=== PATIENT | male | born 1940 | race Caucasian/White ===

== ENCOUNTER 2017-10-13 08:40 | Inpatient (IN) ==
[2017-10-13] MEDS ORDERED: *HR* HYDROmorphone (PF) 1 MG/ML SYRINGE IM ONE (08:55)
[2017-10-13] MEDS ORDERED: Ondansetron ODT 4 MG TAB.RAPDIS SL ONE (08:55)
[2017-10-13] MEDS ORDERED: *HR* LORazepam 1 MG TABLET PO ONE (09:32)
[2017-10-13] MEDS ORDERED: Ketorolac 15 MG/ML VIAL IVP ONE (09:33)
--- NOTE | 2017-10-13 09:40 | Emergency Department Note ---
Disposition Clinical Impression: Ureterolithiasis Sciatica Qualifiers: Laterality: left Qualified Code(s): M54.32 - Sciatica, left side Disposition: Admitted As Inpatient Condition: Fair Referrals: Simba Ellington DO [Primary Care Provider] - Forms: ED Satisfaction Letter Time of Disposition: 16:02 Extremity Problem HPI - General Chief complaint: ED Extremity Problem,Nontraumatic Stated complaint: Left Leg Pain Time Seen by Provider: 10/13/17 09:00 Source: patient, EMS Limitations: no limitations Nursing Notes Reviewed: Yes Vital Signs Reviewed: Yes - History of Present Illness HPI Narrative: Presents with severe left gluteal pain which has been present last several months but worsened significantly this morning at home and is worse with range of motion and he has been diagnosed with sciatica and I did review the previous record with a prescription for prednisone which she has taken however has not yet taken today. He did take one [place] today. The pain is worse with range of motion with associated paresthesias. No abdominal pain. No back pain. No fever or vomiting. He has had imaging including MRI scan of the hip and lumbosacral spine we are in the process of getting his records. Social history : No smoking or alcohol. Is here with his Pain Scale: 10 - Related Data Home Medications Medication Instructions Recorded Confirmed Ramipril [Altace] 2.5 mg PO DAILY 10/01/15 10/13/17 Simvastatin [Zocor] 20 mg PO HS 10/01/15 10/13/17 Tamsulosin [Flomax] 0.4 mg PO DAILY 10/01/15 10/13/17 Multivitamin [One Daily 1 tab PO DAILY 07/10/17 10/13/17 Multivitamin] Allergies Allergy/AdvReac Type Severity Reaction Status Date / Time meperidine Allergy Unresponsiv Verified 10/11/17 08:18 e Review of Systems: Constitutional: No fever Vision: No blurred vision ENT: No rhinorrhea Respiratory: No cough Allergic: No allergies : No blood in urine GI: No blood in stool Hematologic: No bruising Dermatologic: No skin rash Musculoskeletal: + pain in the extremities Neuro: + numbness of the extremities Past Medical History - Past Medical History Medical history: Reports: DVT, GERD, hypertension Surgical history: Reports: orthopedic, other Psychiatric history: Reports: no psych history - Social History Smoking Status: Never smoker Smokeless Tobacco Status: No Alcohol use: Reports: none Drug use: Reports: none Physical Exam CONSTITUTIONAL: Alert and oriented X3, well-nourished, well appearing, in no apparent distress HEAD: Normocephalic; atraumatic. EYES: PERRL, no scleral icterus. NOSE: The nose is normal in appearance without rhinorrhea RESP: Normal chest excursion with respiration; breath sounds clear and equal bilaterally; no wheezes, rhonchi, or rales CARD: Regular rhythm, without murmurs, rub or gallop ABD: Non-distended; non-tender, soft,without rigidity, rebound or guarding, no pulsatile abdominal mass SKIN: Normal for age and race; warm and dry; no apparent lesions Extremities: Left gluteal area is normal in appearance. Does have pain with palpation mid aspect of the left gluteal area as well as pain with passive range of motion of the left hip. Does have a 2+ dorsal pedal pulse on the left. Sensation grossly intact. The foot is pink and warm. I did palpate the lumbosacral spine as well the left lower back musculature and neither of these do elicit any pain. - General Limitations: no limitations General appearance: alert, in distress Course Vital Signs Temperature 98.6 F 10/13/17 08:41 Pulse Rate 78 10/13/17 08:41 Respiratory Rate 20 10/13/17 08:41 Blood Pressure 152/85 10/13/17 08:41 O2 Sat by Pulse Oximetry 98 10/13/17 08:41 Temperature 98.6 F 10/13/17 08:41 Pulse Rate 56 10/13/17 15:03 Respiratory Rate 16 10/13/17 15:03 Blood Pressure 154/85 10/13/17 15:03 O2 Sat by Pulse Oximetry 97 10/13/17 15:03 Oxygen Delivery Oxygen Delivery Room Air Extremity Problem, Nontraumati - MDM Narrative Medical decision making narrative: Symptoms most consistent with sciatica and I do not detect evidence of abdominal aortic aneurysm, infection, zoster or fracture. We are in the process of obtaining the records. 0940 I did confirm no chest pain or shortness of breath however the patient does have a history of DVT has not yet had a Doppler. We are still waiting for old records and in the meantime I will get a Doppler study left lower extremity to look for DVT however I feel this is unlikely with several months of pain and without any edema. Results are pending. The patient did initially receive IM Dilaudid 1 mg and Zofran 4 mg and then in addition will receive Toradol 10 mg IM as well as Ativan 1 mg by mouth. I will reassess. 1011 CT was ordered to look for other causes because this has been worked up further over the last 3 months without a clear etiology found and the suspicion was that however the laboratory evaluation is negative but the CT scan does show a left-sided ureteral proximal ureteral stone at 4 mm into the patient will be admitted with a consult to urology. Case has also been is discussed with orthopedics and the hospitalist as well as Dr. Alejandro from neurosurgery who will see the patient in consult. They recommend MRI scan lumbosacral spine and I did order that test to be done. 1604 - Medical Records Medical records reviewed: Yes I reviewed the patient's medical records. - Lab Data Lab results reviewed: Yes I reviewed the patient's lab results. Result diagrams: 10/13/17 12:18 10/13/17 12:18 Lab Results 10/13/17 10/13/17 10/13/17 Range/Units 12:18 12:18 12:18 WBC 11.4 H (4.3-11.1) K/mcL RBC 3.79 L (4.19-5.50) M/mcL Hgb 12.1 L (12.9-16.9) g/dL Hct 35.4 L (37.5-50.1) % MCV 93.4 (83.0-100.0) fL MCH 31.9 (28.0-33.3) pg MCHC 34.2 (31.6-35.5) g/dL RDW 12.5 (11.5-14.5) % Plt Count 191 (140-400) K/mcL MPV 9.4 (9.4-12.4) fL ESR 5 (0-10) mm/hr Sodium 140 (136-145) mEq/L Potassium 3.4 L (3.5-5.1) mEq/L Chloride 109 H (98-107) mEq/L Carbon Dioxide 24 (23-29) mEq/L BUN 25 H (8-23) mg/dL Creatinine 0.94 (0.70-1.30) mg/dL Est GFR ( Amer) > 60 (> 60) Est GFR (Non-Af Amer) > 60 (> 60) BUN/Creatinine Ratio 27 H (6-26) Glucose 97 (70-105) mg/dL Calculated Osmolality 294 (280-300) Calcium 8.5 L (8.6-10.3) mg/dL Total Bilirubin 0.7 (0.3-1.0) mg/dL Direct Bilirubin 0.1 (0.0-0.2) mg/dL Indirect Bilirubin 0.6 (0.0-1.2) mg/dL AST 15 (13-39) Units/L ALT 11 (7-52) Units/L Alkaline Phosphatase 53 (34-104) Units/L C-Reactive Protein < 5 (Less than 10) mg/L Serum Total Protein 5.4 L (6.4-8.9) g/dL Albumin 3.6 (3.5-5.7) g/dL Globulin 1.8 L (2.4-3.5) g/dL Albumin/Globulin Ratio 2.0 (1.1-2.2) Lipase 15 (11-82) Units/L Urine Color (Yellow) Urine Clarity (Clear) Urine pH (5.0-8.0) pH Units Ur Specific [place] (1.010-1.025) Urine Protein (Neg-Trace) mg/dL Urine Glucose (UA) (Normal) mg/dL Urine Ketones (Negative) mg/dL Urine Blood (Negative) Urine Nitrite (Negative) Urine Bilirubin (Negative) Urine Urobilinogen (Normal) mg/dL Ur Leukocyte Esterase (Negative) Urine Microscopic RBC (0-3) per hpf Urine Microscopic WBC (0-3) per hpf Ur Squamous Epith Cells (None-Few) per lpf Urine Bacteria (None-Few) per hpf Hyaline Casts (None-Few) per lpf 10/13/17 Range/Units 14:54 WBC (4.3-11.1) K/mcL RBC (4.19-5.50) M/mcL Hgb (12.9-16.9) g/dL Hct (37.5-50.1) % MCV (83.0-100.0) fL MCH (28.0-33.3) pg MCHC (31.6-35.5) g/dL RDW (11.5-14.5) % Plt Count (140-400) K/mcL MPV (9.4-12.4) fL ESR (0-10) mm/hr Sodium (136-145) mEq/L Potassium (3.5-5.1) mEq/L Chloride (98-107) mEq/L Carbon Dioxide (23-29) mEq/L BUN (8-23) mg/dL Creatinine (0.70-1.30) mg/dL Est GFR ( Amer) (> 60) Est GFR (Non-Af Amer) (> 60) BUN/Creatinine Ratio (6-26) Glucose (70-105) mg/dL Calculated Osmolality (280-300) Calcium (8.6-10.3) mg/dL Total Bilirubin (0.3-1.0) mg/dL Direct Bilirubin (0.0-0.2) mg/dL Indirect Bilirubin (0.0-1.2) mg/dL AST (13-39) Units/L ALT (7-52) Units/L Alkaline Phosphatase (34-104) Units/L C-Reactive Protein (Less than 10) mg/L Serum Total Protein (6.4-8.9) g/dL Albumin (3.5-5.7) g/dL Globulin (2.4-3.5) g/dL Albumin/Globulin Ratio (1.1-2.2) Lipase (11-82) Units/L Urine Color Yellow (Yellow) Urine Clarity Clear (Clear) Urine pH 6.0 (5.0-8.0) pH Units Ur Specific [place] > 1.030 H (1.010-1.025) Urine Protein Negative (Neg-Trace) mg/dL Urine Glucose (UA) Normal (Normal) mg/dL Urine Ketones Negative (Negative) mg/dL Urine Blood Small H (Negative) Urine Nitrite Negative (Negative) Urine Bilirubin Negative (Negative) Urine Urobilinogen Normal (Normal) mg/dL Ur Leukocyte Esterase Negative (Negative) Urine Microscopic RBC 3-5 H (0-3) per hpf Urine Microscopic WBC 0-3 (0-3) per hpf Ur Squamous Epith Cells Few (None-Few) per lpf Urine Bacteria None Seen (None-Few) per hpf Hyaline Casts None Seen (None-Few) per lpf - Radiology Data Radiology results reviewed: Yes I reviewed the patient's radiology results.
[2017-10-13] MEDS ORDERED: *HR* Morphine 2 MG/ML SYRINGE IVP ONE (11:26)
[2017-10-13 12:23] LABS: Hematocrit 35.4 % (37.5-50.1); Hemoglobin 12.1 g/dL (12.9-16.9); Mean Corpuscular HGB Conc 34.2 g/dL (31.6-35.5); Mean Corpuscular Hemoglobin 31.9 pg (28.0-33.3); Mean Corpuscular Volume 93.4 fL (83.0-100.0); Mean Platelet Volume 9.4 fL (9.4-12.4); Platelet Count 191 K/mcL (140-400); Red Blood Count 3.79 M/mcL (4.19-5.50); Red Cell Distribution Width 12.5 % (11.5-14.5)
[2017-10-13] MEDS ORDERED: *HR* HYDROmorphone (PF) 1 MG/ML SYRINGE IVP ONE (12:40)
[2017-10-13 12:41] LABS: Alanine Aminotransferase 11 Units/L (7-52); Albumin 3.6 g/dL (3.5-5.7); Alkaline Phosphatase 53 Units/L (34-104); Aspartate Amino Transferase 15 Units/L (13-39); BUN/Creatinine Ratio 27 (6-26); Bilirubin,Direct 0.1 mg/dL (0.0-0.2); Bilirubin,Indirect 0.6 mg/dL (0.0-1.2); Bilirubin,Total 0.7 mg/dL (0.3-1.0); Blood Urea Nitrogen 25 mg/dL (8-23); C-Reactive Protein < 5 mg/L (Less than 10); Calcium 8.5 mg/dL (8.6-10.3); Carbon Dioxide 24 mEq/L (23-29); Chloride 109 mEq/L (98-107); Globulin 1.8 g/dL (2.4-3.5); Glucose 97 mg/dL (70-105); Lipase 15 Units/L (11-82); Osmolality,Calculated 294 (280-300); Potassium 3.4 mEq/L (3.5-5.1); Sodium 140 mEq/L (136-145); Total Protein 5.4 g/dL (6.4-8.9); eGFR For African Americans > 60 (> 60); eGFR For Non-African Americans > 60 (> 60)
[2017-10-13 15:10] LABS: Bilirubin,Urine Negative (Negative); Blood,Urine Small (Negative); Clarity,Urine Clear (Clear); Color,Urine Yellow (Yellow); Glucose,Urine (UA) Normal (Normal); Ketones,Urine Negative (Negative); Leukocyte Esterase,Urine Negative (Negative); Nitrite,Urine Negative (Negative); Protein,Urine Negative (Neg-Trace); Specific Gravity,Urine > 1.030 (1.010-1.025); Urobilinogen,Urine Normal (Normal)
[2017-10-13 15:14] LABS: Bacteria,Urine None Seen per hpf (None-Few); Hyaline Casts,Urine None Seen per lpf (None-Few); Squamous Epithelial Cell,Urine Few per lpf (None-Few); WBC,Urine 0-3 per hpf (0-3)
--- NOTE | 2017-10-13 18:05 | Urology - Consult Note ---
Date of Encounter: 10/13/17 Time of Encounter: 18:02 - Assessment and Plan (1) Ureterolithiasis Current Visit: Yes Status: Acute Assessment and plan: 76-year-old man with a 4 mm left proximal ureteral stone was admitted for pain control. I discussed with him that his CT scan shows no evidence of hydronephrosis. Typically patients will develop pain associated with ureteral obstruction. The stone is nonobstructing. Discussed that his pain may not be related to the stone. I also reviewed that treatment of the stone could certainly make his pain even worse. We discussed the discomfort associated with the stent. I also discussed seeing at the stone will pass over time if we can control his pain. We reviewed the risks and benefits of both approaches. After discussion he elects to proceed with a left ureteroscopy, laser lithotripsy, and stent placement. He was informed of the risks of the procedure including but not limited to bleeding, infection, injury to other structures, need for further procedures, stent irritation, incomplete fragmentation, ureteral perforation, need for nephrostomy tube, need for open repair, risks unforeseen, and the risk of anesthesia. He is willing to proceed. He could have a regular diet tonight. Nothing by mouth past midnight. He understands that his surgery may be late in the afternoon tomorrow. Urology CN:PREETI Consult date: 10/13/17 Reason for consult Urology: Other (left ureteral stone) History of present illness: 76-year-old man presents with concern for left flank pain. The pain became quite severe today. It radiated down his left leg. He has a known history of sciatica, but this was much more severe. He denies any history of kidney stones. He says he voids well without any issues. He denies any family history of kidney stones or prostate cancer. A CT scan was performed in the emergency department which showed a 4 mm left proximal ureteral stone. There was no evidence of hydronephrosis. He has been admitted for further care. Currently, he says his pain is somewhat improved. Past Med Surg Social Fam HX - Past Medical History Medical history: DVT, GERD, hypertension Psychiatric history: no psych history - Past Surgical History Surgical History: orthopedic, other - Social History Smoking Status: Never smoker Smokeless Tobacco Status: No Alcohol use: none Drug use: none Medications and Allergies Ramipril [Altace] 2.5 mg PO DAILY 10/01/15 [History] Simvastatin [Zocor] 20 mg PO HS 10/01/15 [History] Tamsulosin [Flomax] 0.4 mg PO DAILY 10/01/15 [History] Multivitamin [One Daily Multivitamin] 1 tab PO DAILY 07/10/17 [History] 3 Allergy/AdvReac Type Severity Reaction Status Date / Time meperidine Allergy Unresponsiv Verified 10/11/17 08:18 e Review of Systems - Constitutional no chills, no fever(s) - EENT Nose, mouth and throat: no dizziness - Cardiovascular no chest pain - Respiratory no dyspnea - Gastrointestinal no nausea, no vomiting - Genitourinary flank pain, no hematuria - Musculoskeletal no back pain - Integumentary no erythema, no rash - Neurological no weakness - Psychiatric no suicidal ideation - Hematologic/Lymphatic no easy bleeding - Allergic/Immunologic no wheezing Exam Initial Vital Signs Temp Pulse Resp BP Pulse Ox 98.6 F 78 20 152/85 98 10/13/17 08:41 10/13/17 08:41 10/13/17 08:41 10/13/17 08:41 10/13/17 08:41 - General physical appearance Present: well developed, well nourished, no distress - Eyes Absent: icteric - ENT Present: normal nares - Neck Present: trachea midline - Respiratory Present: normal respiratory effort - Cardiovascular Cardiovascular exam IM: RRR - Abdomen Abdomen: Present: soft Urology Results - Labs 10/13/17 12:18 10/13/17 12:18 Abnormal lab results WBC 11.4 K/mcL (4.3-11.1) H 10/13/17 12:18 RBC 3.79 M/mcL (4.19-5.50) L 10/13/17 12:18 Hgb 12.1 g/dL (12.9-16.9) L 10/13/17 12:18 Hct 35.4 % (37.5-50.1) L 10/13/17 12:18 Potassium 3.4 mEq/L (3.5-5.1) L 10/13/17 12:18 Chloride 109 mEq/L (98-107) H 10/13/17 12:18 BUN 25 mg/dL (8-23) H 10/13/17 12:18 BUN/Creatinine Ratio 27 (6-26) H 10/13/17 12:18 Calcium 8.5 mg/dL (8.6-10.3) L 10/13/17 12:18 Serum Total Protein 5.4 g/dL (6.4-8.9) L 10/13/17 12:18 Globulin 1.8 g/dL (2.4-3.5) L 10/13/17 12:18 Ur Specific [place] > 1.030 (1.010-1.025) H 10/13/17 14:54 Urine Blood Small (Negative) H 10/13/17 14:54 Urine Microscopic RBC 3-5 per hpf (0-3) H 10/13/17 14:54 All other labs normal. - Imaging CT scan - abdomen: report reviewed, image reviewed CT scan - pelvis: report reviewed, image reviewed Consult Discharge Plan - Plan Referrals: Simba Ellington DO [Primary Care Provider] -
[2017-10-13] MEDS ORDERED: Acetaminophen 325 MG TABLET PO PRN (19:31)
[2017-10-13] MEDS ORDERED: Naloxone 0.4 MG/ML INJ IVP PRN (19:31)
[2017-10-13] MEDS ORDERED: *HR* HYDROcodone/Acet 5/325 mg TABLET PO ONE (19:38)
[2017-10-13] MEDS: *HR* Morphine 2 MG/ML SYRINGE IVP PRN (19:51)
--- NOTE | 2017-10-13 20:22 | Internal Med History&Physical ---
Date of Encounter: 10/13/17 Time of Encounter: 20:00 Assessment and Plan (1) Lumbar nerve root impingement Current visit: Yes Status: Acute Patient with severe left sided sciatica with subarticular disc protrusion at L3- L4 and impingement of left L4 nerve root. We will treat symptomatically. Pain control with narcotic medications for severe pain. Will start patient on Flexeril. Consult spine surgery. Monitor vital signs. High risk for complications due to intravenous narcotic medication use. PTOT based on spine surgery recommendations (2) Sciatica Current visit: Yes Status: Acute Due to L4 nerve root impingement. Management per spine surgery recommendations Qualifiers: Laterality: left Qualified Code(s): M54.32 - Sciatica, left side (3) Ureterolithiasis Current visit: Yes Status: Acute Urology consulted. Patient has 4 mm obstructing calculus in the left proximal ureter. Urology has been consulted. No significant hydronephrosis. IV hydration. Plan for ureteroscopy and lithotripsy tomorrow (4) Essential hypertension Current visit: Yes Status: Chronic Blood pressure is elevated at this time. Likely from pain. Will resume home medications. Monitor blood pressure closely. (5) DVT prophylaxis Current visit: Yes Status: Acute With subcutaneous heparin Internal Medicine - H&P: HPI Chief complaint: Left hip/ gluteal region pain Admitted From: Emergency Dept Plans for Post Hospital Care: Home History of present illness: Mr. Chung is a 76 year old male patient with history of prior DVT, gastroesophageal reflux disease, hypertension who presented to the ER with complaints of left gluteal region/hip pain. His symptoms have been going on since June. He had previously seen Dr. Rodriguez in the clinic and was prescribed [place] to help treat his pain. He had come to the ER 2 days back and was placed on prednisone. It did not really help with his symptoms. He denies any fever or chills. No bowel or bladder incontinence. He says that his pain became more and more severe and was excruciating today and so he decided to come to the ER. Any time of movement with his back or left leg causes some tremendous amount of pain. The pain does radiate down his left leg but is mainly prominent in his left gluteal region. He denies any focal weakness but he does have some numbness and tingling in his left foot. He denies any flank pain. No hematuria. No dysuria. Past Med Surg Social Fam HX - Past Medical History Attestation: Yes The following information was validated with the patient. Source: patient Medical history: DVT, GERD, hypertension Psychiatric history: no psych history - Past Surgical History Surgical History: orthopedic, other - Social History Smoking Status: Never smoker Smokeless Tobacco Status: No Alcohol use: none Drug use: none - Family History Father Living Status: Hx Family Cardiac Disorders: Yes ([place]) Mother Living Status: Hx Family Cancer: Yes (ovarian) Internal Medicine - H&P: Meds Ramipril [Altace] 2.5 mg PO DAILY 10/01/15 [History] Simvastatin [Zocor] 20 mg PO HS 10/01/15 [History] Tamsulosin [Flomax] 0.4 mg PO DAILY 10/01/15 [History] Multivitamin [One Daily Multivitamin] 1 tab PO DAILY 07/10/17 [History] 3 Allergy/AdvReac Type Severity Reaction Status Date / Time meperidine Allergy Unresponsiv Verified 10/11/17 08:18 e All Systems PM: A 10-system review of systems was performed and is negative for pertinent findings except as documented above in the HPI. - Constitutional Constitutional: no chills, no fever(s), no night sweats - EENT Eyes: no change in vision, no discharge, no pain, no photophobia Ears: no ear discharge, no ear pain, no tinnitus Nose, mouth and throat: no dysphagia, no nasal discharge, no neck pain, no sore throat - Cardiovascular Cardiovascular ROS IM: no chest pain, no diaphoresis, no dyspnea, no lightheadedness, no palpitations, no syncope - Respiratory Respiratory: no cough, no dyspnea, no wheezing, no excessive phlegm production - Gastrointestinal Gastrointestinal: no abdominal pain, no diarrhea, no hematemesis, no hematochezia, no melena, no nausea, no vomiting - Musculoskeletal Musculoskeletal ROS IM: myalgias, numbness, tingling - Neurological Neurological ROS: no confusion, no convulsions, no focal weakness, no numbness, no tingling, no tremor(s) - Hematologic/Lymphatic Hematologic/Lymphatic: no easy bruising - Constitutional Vitals: Temp Pulse Resp BP Pulse Ox 98.5 F 54 18 155/83 95 10/13/17 17:45 10/13/17 17:45 10/13/17 17:45 10/13/17 17:45 10/13/17 17:45 General appearance: Present: cooperative, A&O X 3, severe distress, answers questions appropriately - Neck Neck exam general surgery: Present: supple, trachea midline. Absent: lymphadenopathy - Respiratory Respiratory exam: Present: CTAB. Absent: accessory muscle use, rales, rhonchi, wheezes - Cardiovascular Cardiovascular exam: Present: RRR, +S1, +S2. Absent: diastolic murmur, gallop, rubs, systolic murmur - GI/Abdominal GI/Abdominal exam: Present: normal bowel sounds, soft, no peritoneal signs. Absent: distended, tenderness - Extremities Exam Extremities exam: Present: warm, radial pulses palpable and symmetrical. Absent : calf tenderness, cyanotic, pedal edema Additional comments: Pain in left hip with straight leg raise test. Significant pain radiating down the spine and left leg on sitting up. - Neurological Exam Neurological exam: Present: alert, CN II-XII intact, oriented X3, no focal deficits. Absent: facial droop, speech deficit - Skin Skin exam: Present: dry, intact Internal Med - H&P Results - Labs CBC & Chem 7: 10/13/17 12:18 10/13/17 12:18 - Impressions Impressions Abdomen/Pelvis CT 10/13/17 12:08 nonspecific calcification and nodularity. There is nodular impression at the urinary bladder base. The urinary bladder is otherwise unremarkable. Peritoneum/Retroperitoneum: No evidence of significant intra-abdominal free fluid. No evidence of intra-abdominal free air. No drainable fluid collection is identified. Bones/Soft Tissues: No suspicious osseous lesion is identified. There is disc extrusion at L3-L4 with inferior migration. Mild spinal canal stenosis. There are additional multilevel disc bulges. Evidence of previous intramedullary nailing of the left femur. IMPRESSION: 1. Obstructing 4 mm calculus within the proximal left ureter, without significant left hydronephrosis. Approximately 20 mm hypodense lesion within the right kidney, which is nonspecific. Follow-up renal ultrasound is recommended when clinically appropriate to confirm that this is a cyst. There are areas of renal cortical scarring suggestive of previous episode of pyelonephritis. 2. Enlarged and nodular prostate with impression of the urinary base. Correlate with PSA level for any concern of prostatic carcinoma. 3. Disc extrusion at L3-L4 with inferior migration. Mild spinal canal stenosis by CT. 4. Colonic diverticulosis, without CT evidence of acute diverticulitis. 5. Nonspecific calcification and/or ossification involving the left gluteal muscles. Given history of left gluteal pain, recommend clinical correlation. D/ / 10/13/2017 13:52:55 Miguel Akbar MD / allen Interpreting Provider: Miguel Akbar MD Lumbar Spine MRI 10/13/17 16:00 IMPRESSION: Subarticular disc protrusion at L3-4 resulting in impingement of the traversing left L4 nerve root. D/ / Pascual Deluca MD / Pascual Deluca MD Interpreting Provider: Pascual Deluca MD
[2017-10-13] MEDS: Ketorolac 30 MG/ML VIAL IVP PRN (21:14)
[2017-10-13] MEDS: D5% in 0.45% NACL 1,000 ML IVC SCH (22:44)
[2017-10-14] MEDS: *HR* Morphine 2 MG/ML SYRINGE IVP PRN (00:45)
[2017-10-14] MEDS: *HR* FentaNYL (PF) 100 MCG/2 ML VIAL IVP PRN ×3 (01:22→10:28)
[2017-10-14 04:41] LABS: Basophils % 0.3 %; Eosinophils % 0.3 %; Hematocrit 35.2 % (37.5-50.1); Hemoglobin 12.1 g/dL (12.9-16.9); Immature Granulocytes % 0.2 % (0-4); Lymphocytes # 2.3 K/mcL (0.6-4.6); Lymphocytes % 35.8 %; Mean Corpuscular HGB Conc 34.4 g/dL (31.6-35.5); Mean Corpuscular Hemoglobin 32.4 pg (28.0-33.3); Mean Corpuscular Volume 94.1 fL (83.0-100.0); Mean Platelet Volume 9.4 fL (9.4-12.4); Monocytes # 0.6 K/mcL (0.0-1.3); Monocytes % 9.7 %; Neutrophils # 3.4 K/mcL (1.6-8.9); Platelet Count 182 K/mcL (140-400); Red Blood Count 3.74 M/mcL (4.19-5.50); Red Cell Distribution Width 12.6 % (11.5-14.5); Segmented Neutrophils % 53.7 %
[2017-10-14 05:04] LABS: BUN/Creatinine Ratio 23 (6-26); Blood Urea Nitrogen 19 mg/dL (8-23); Calcium 8.3 mg/dL (8.6-10.3); Carbon Dioxide 27 mEq/L (23-29); Chloride 107 mEq/L (98-107); Glucose 100 mg/dL (70-105); Osmolality,Calculated 288 (280-300); Potassium 3.8 mEq/L (3.5-5.1); Sodium 138 mEq/L (136-145); eGFR For African Americans > 60 (> 60); eGFR For Non-African Americans > 60 (> 60)
[2017-10-14] MEDS: *HR* Heparin 5,000 UNIT/ML VIAL SQ SCH ×2 (06:08→16:38)
[2017-10-14] MEDS: D5% in 0.45% NACL 1,000 ML IVC SCH (08:48)
[2017-10-14] MEDS: Ketorolac 30 MG/ML VIAL IVP PRN (08:49)
[2017-10-14] MEDS ORDERED: Multivit/Ca/Min/Fe/FA 1 TAB TABLET PO SCH (09:00)
--- NOTE | 2017-10-14 09:28 | Urology Progress Note ---
Date of Encounter: 10/14/17 Time of Encounter: 09:26 - Assessment and Plan (1) Ureterolithiasis Current Visit: Yes Status: Acute Assessment and plan: Plan for left ureteroscopy, laser lithotripsy, and stent placement later today. He is aware of all risks. He is nothing by mouth. Progress Note Narrative: 76-year-old man with a left ureteral stone. He is doing fairly well. His pain is adequately controlled. Objective Initial Vital Signs Temp Pulse Resp BP Pulse Ox 98.6 F 78 20 152/85 98 10/13/17 08:41 10/13/17 08:41 10/13/17 08:41 10/13/17 08:41 10/13/17 08:41 - General physical appearance Present: well developed, well nourished, no distress - Respiratory Present: normal respiratory effort - Abdomen Present: soft - Labs 10/14/17 04:18 10/14/17 04:18 Diabetes panel 10/14/17 Range/Units 04:18 Sodium 138 (136-145) mEq/L Potassium 3.8 (3.5-5.1) mEq/L Chloride 107 (98-107) mEq/L Carbon Dioxide 27 (23-29) mEq/L BUN 19 (8-23) mg/dL Creatinine 0.82 (0.70-1.30) mg/dL Glucose 100 (70-105) mg/dL Calcium 8.3 L (8.6-10.3) mg/dL Calcium panel 10/14/17 Range/Units 04:18 Calcium 8.3 L (8.6-10.3) mg/dL Pituitary panel 10/14/17 Range/Units 04:18 Sodium 138 (136-145) mEq/L Potassium 3.8 (3.5-5.1) mEq/L Chloride 107 (98-107) mEq/L Carbon Dioxide 27 (23-29) mEq/L BUN 19 (8-23) mg/dL Creatinine 0.82 (0.70-1.30) mg/dL Glucose 100 (70-105) mg/dL Calcium 8.3 L (8.6-10.3) mg/dL Adrenal panel 10/14/17 Range/Units 04:18 Sodium 138 (136-145) mEq/L Potassium 3.8 (3.5-5.1) mEq/L Chloride 107 (98-107) mEq/L Carbon Dioxide 27 (23-29) mEq/L BUN 19 (8-23) mg/dL Creatinine 0.82 (0.70-1.30) mg/dL Glucose 100 (70-105) mg/dL Calcium 8.3 L (8.6-10.3) mg/dL Consult Discharge Plan - Plan Referrals: Simba Ellington DO [Primary Care Provider] -
[2017-10-14] MEDS ORDERED: CeFAZolin Premix DUPLEX 2,000 MG/50 ML BAG IVPB ONE (15:00)
[2017-10-14] MEDS ORDERED: Lidocaine -MPF 2% 2 ML VIAL ONE (16:47)
[2017-10-14] MEDS ORDERED: *HR* Midazolam HCl 2 MG/2 ML VIAL ONE (16:48)
[2017-10-14] MEDS ORDERED: *HR* FentaNYL (PF) 100 MCG/2 ML VIAL ONE (16:48)
[2017-10-14] MEDS ORDERED: *HR* Propofol 200 MG/20 ML VIAL IVP ONE (16:48)
[2017-10-14] MEDS ORDERED: Gabapentin 300 MG CAPSULE PO STA ×2 (17:30→19:36)
[2017-10-14] MEDS ORDERED: Acetaminophen IV 1,000 MG/100 ML INFUS..BTL IVPB ONE ×2 (17:30→19:36)
--- NOTE | 2017-10-14 17:32 | Anesthesia Evaluation PreOp ---
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 maintained on Flomax) Anesthesia History: No Prior Anesthetic Complications, Past Anesthesia ( Orthopedic) Alcohol Use: none Drug use: none Medications and Allergies Ramipril [Altace] 2.5 mg PO DAILY 10/01/15 [History] Simvastatin [Zocor] 20 mg PO HS 10/01/15 [History] Tamsulosin [Flomax] 0.4 mg PO DAILY 10/01/15 [History] Multivitamin [One Daily Multivitamin] 1 tab PO DAILY 07/10/17 [History] 3 Allergy/AdvReac Type Severity Reaction Status Date / Time meperidine Allergy Unresponsiv Verified 10/11/17 08:18 e - Meds/Allergy Pre-op Review Medications Reviewed: Yes Allergies Reviewed: Yes Beta Blockers on Current Med List: No Anesthesia Results - Labs 10/14/17 04:18 10/14/17 04:18 Laboratory Results WBC 6.4 K/mcL (4.3-11.1) 10/14/17 04:18 RBC 3.74 M/mcL (4.19-5.50) L 10/14/17 04:18 Hgb 12.1 g/dL (12.9-16.9) L 10/14/17 04:18 Hct 35.2 % (37.5-50.1) L 10/14/17 04:18 MCV 94.1 fL (83.0-100.0) 10/14/17 04:18 MCH 32.4 pg (28.0-33.3) 10/14/17 04:18 MCHC 34.4 g/dL (31.6-35.5) 10/14/17 04:18 RDW 12.6 % (11.5-14.5) 10/14/17 04:18 Plt Count 182 K/mcL (140-400) 10/14/17 04:18 MPV 9.4 fL (9.4-12.4) 10/14/17 04:18 Immature Gran % 0.2 % (0-4) 10/14/17 04:18 Seg Neutrophils % 53.7 % 10/14/17 04:18 Lymphocytes % 35.8 % 10/14/17 04:18 Monocytes % 9.7 % 10/14/17 04:18 Eosinophils % 0.3 % 10/14/17 04:18 Basophils % 0.3 % 10/14/17 04:18 Neutrophils # 3.4 K/mcL (1.6-8.9) 10/14/17 04:18 Lymphocytes # 2.3 K/mcL (0.6-4.6) 10/14/17 04:18 Monocytes # 0.6 K/mcL (0.0-1.3) 10/14/17 04:18 Eosinophils # 0.0 K/mcL (0.0-0.6) 10/14/17 04:18 Basophils # 0.0 K/mcL (0.0-0.2) 10/14/17 04:18 ESR 5 mm/hr (0-10) 10/13/17 12:18 Sodium 138 mEq/L (136-145) 10/14/17 04:18 Potassium 3.8 mEq/L (3.5-5.1) 10/14/17 04:18 Chloride 107 mEq/L (98-107) 10/14/17 04:18 Carbon Dioxide 27 mEq/L (23-29) 10/14/17 04:18 BUN 19 mg/dL (8-23) 10/14/17 04:18 Creatinine 0.82 mg/dL (0.70-1.30) 10/14/17 04:18 Est GFR ( Amer) > 60 (> 60) 10/14/17 04:18 Est GFR (Non-Af Amer) > 60 (> 60) 10/14/17 04:18 BUN/Creatinine Ratio 23 (6-26) 10/14/17 04:18 Glucose 100 mg/dL (70-105) 10/14/17 04:18 Calculated Osmolality 288 (280-300) 10/14/17 04:18 Calcium 8.3 mg/dL (8.6-10.3) L 10/14/17 04:18 Total Bilirubin 0.7 mg/dL (0.3-1.0) 10/13/17 12:18 Direct Bilirubin 0.1 mg/dL (0.0-0.2) 10/13/17 12:18 Indirect Bilirubin 0.6 mg/dL (0.0-1.2) 10/13/17 12:18 AST 15 Units/L (13-39) 10/13/17 12:18 ALT 11 Units/L (7-52) 10/13/17 12:18 Alkaline Phosphatase 53 Units/L (34-104) 10/13/17 12:18 C-Reactive Protein < 5 mg/L (Less than 10) 10/13/17 12:18 Serum Total Protein 5.4 g/dL (6.4-8.9) L 10/13/17 12:18 Albumin 3.6 g/dL (3.5-5.7) 10/13/17 12:18 Globulin 1.8 g/dL (2.4-3.5) L 10/13/17 12:18 Albumin/Globulin Ratio 2.0 (1.1-2.2) 10/13/17 12:18 Lipase 15 Units/L (11-82) 10/13/17 12:18 Urine Color Yellow (Yellow) 10/13/17 14:54 Urine Clarity Clear (Clear) 10/13/17 14:54 Urine pH 6.0 pH Units (5.0-8.0) 10/13/17 14:54 Ur Specific [place] > 1.030 (1.010-1.025) H 10/13/17 14:54 Urine Protein Negative mg/dL (Neg-Trace) 10/13/17 14:54 Urine Glucose (UA) Normal mg/dL (Normal) 10/13/17 14:54 Urine Ketones Negative mg/dL (Negative) 10/13/17 14:54 Urine Blood Small (Negative) H 10/13/17 14:54 Urine Nitrite Negative (Negative) 10/13/17 14:54 Urine Bilirubin Negative (Negative) 10/13/17 14:54 Urine Urobilinogen Normal mg/dL (Normal) 10/13/17 14:54 Ur Leukocyte Esterase Negative (Negative) 10/13/17 14:54 Urine Microscopic RBC 3-5 per hpf (0-3) H 10/13/17 14:54 Urine Microscopic WBC 0-3 per hpf (0-3) 01/26/18 14:54 Ur Squamous Epith Cells Few per lpf (None-Few) 10/13/17 14:54 Urine Bacteria None Seen per hpf (None-Few) 10/13/17 14:54 Hyaline Casts None Seen per lpf (None-Few) 10/13/17 14:54 Impressions Abdomen/Pelvis CT 10/13/17 12:08 nonspecific calcification and nodularity. There is nodular impression at the urinary bladder base. The urinary bladder is otherwise unremarkable. Peritoneum/Retroperitoneum: No evidence of significant intra-abdominal free fluid. No evidence of intra-abdominal free air. No drainable fluid collection is identified. Bones/Soft Tissues: No suspicious osseous lesion is identified. There is disc extrusion at L3-L4 with inferior migration. Mild spinal canal stenosis. There are additional multilevel disc bulges. Evidence of previous intramedullary nailing of the left femur. IMPRESSION: 1. Obstructing 4 mm calculus within the proximal left ureter, without significant left hydronephrosis. Approximately 20 mm hypodense lesion within the right kidney, which is nonspecific. Follow-up renal ultrasound is recommended when clinically appropriate to confirm that this is a cyst. There are areas of renal cortical scarring suggestive of previous episode of pyelonephritis. 2. Enlarged and nodular prostate with impression of the urinary base. Correlate with PSA level for any concern of prostatic carcinoma. 3. Disc extrusion at L3-L4 with inferior migration. Mild spinal canal stenosis by CT. 4. Colonic diverticulosis, without CT evidence of acute diverticulitis. 5. Nonspecific calcification and/or ossification involving the left gluteal muscles. Given history of left gluteal pain, recommend clinical correlation. D/ / 10/13/2017 13:52:55 Miguel Akbar MD / allen Interpreting Provider: Miguel Akbar MD Lumbar Spine MRI 10/13/17 16:00 IMPRESSION: Subarticular disc protrusion at L3-4 resulting in impingement of the traversing left L4 nerve root. D/ / Pascual Deluca MD / Pascual Deluca MD Interpreting Provider: Pascual Deluca MD Anesthesia Exam Vital Signs Temp Pulse Resp BP Pulse Ox 10/14/17 15:56 98.4 F 53 14 137/71 95 10/14/17 12:27 98.4 F 48 14 135/69 94 10/14/17 06:56 97.9 F 47 16 124/62 95 10/14/17 03:57 97.7 F 44 15 114/68 95 10/13/17 23:21 98.4 F 47 16 121/68 97 10/13/17 17:45 98.5 F 54 18 155/83 95 Intake and Output 10/14/17 10/14/17 10/14/17 07:59 15:59 23:59 Intake Total 1000 / 1000 Output Total 450 / 450 700 / 700 Balance -450 / -450 300 / 300 Intake: IV Fluids 1000 / 1000 D5% And 0.45% Nacl 1000 Ml Bag 1000 / 1000 1,000 ML @ 75 mls/hr IVC . 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 Zo Trammell MD
[2017-10-14] MEDS ORDERED: Acetaminophen IV 1,000 MG/100 ML INFUS..BTL ONE (17:40)
--- NOTE | 2017-10-14 17:45 | Operative Note ---
Date of procedure: 10/14/17 Pre-op diagnosis: Left ureteral stone Post-op diagnosis: other (passed left ureteral stone) Procedure: Left ureteroscopy and left ureteral stent placement. Implants: 4.8 [place]cu[place] by 26 cm double-J stent Complications: none Anesthesia: SETHA Surgeon: Jay Darling Was there an assistant manager pt present: No Estimated blood loss (cc): 1 Specimen: none. Condition: stable Disposition: PACU Procedure in Detail: Indications: Mr. Chung is a 76-year-old gentleman who has a history of left flank pain. A CT scan showed a 4 mm stone in the proximal left ureter. He elected to undergo a left ureteroscopy, laser lithotripsy, and stent placement. He is aware of the risks of the procedure including but not limited to bleeding, infection, injury to other structures, need for further procedures, stent irritation, and the risk of anesthesia. He is willing to proceed. Procedure: After informed consent was obtained the patient was brought back to the operating room and placed in supine position. A time out was performed. General anesthesia was administered and an LMA was placed. He was then placed in the lithotomy position. He was prepped and draped in the usual sterile fashion. Cystoscopy was performed. The anterior urethra was normal. There was no evidence of bladder tumors. The ureteral orifices were in the normal orthotopic position. The Zip wire was placed in the left ureteral orifice and brought into the kidney under fluoroscopic guidance. The ureter was gently dilated with the 8 /10 [place] ureteral dilator. I then advanced the semirigid ureteroscope into the ureter. The scope was advanced into the proximal ureter. No stone was noted. The sensor wire was then placed. The ureteroscope was removed. The flexible ureteroscope was advanced into the kidney. I surveyed all the calyces. I did not visualize any stone. A pullout ureteroscopy was performed. There was no evidence of stone in the ureter. I reassessed with the semirigid ureteroscope and indeed there was no stone. The bladder was then surveyed with the cystoscope and no stone was seen in the bladder. A 4.8 [place] by 26cm JJ stent was then placed with good curl seen in the kidney and the bladder. The dangle string left intact. The string was secured to the penis using a Tegaderm. The patient was then awakened from general anesthesia and brought to recovery room in good condition. All sponge, needle, and instrument counts were correct.
--- NOTE | 2017-10-14 18:01 | Internal Med Progress Note ---
Date of Encounter: 10/14/17 Time of Encounter: 17:59 - Assessment and plan (1) Ureterolithiasis Current Visit: Yes Status: Acute Assessment and plan: Urology consulted. Patient has 4 mm obstructing calculus in the left proximal ureter. Urology was consulted. No significant hydronephrosis. Left ureteroscopy, laser lithotripsy, basket stone extraction, and left ureteral stent placement completed. (2) Essential hypertension Current Visit: Yes Status: Chronic Assessment and plan: Blood pressure well-controlled with pain control Continue home medications (3) DVT prophylaxis Current Visit: Yes Status: Acute Assessment and plan: Subcutaneous heparin (4) Sciatica Current Visit: Yes Status: Acute Assessment and plan: Due to L4 nerve root impingement. Management per spine surgery recommendations Qualifiers: Laterality: left Qualified Code(s): M54.32 - Sciatica, left side (5) Lumbar nerve root impingement Current Visit: Yes Status: Acute Assessment and plan: Patient with severe left sided sciatica with subarticular disc protrusion at L3- L4 and impingement of left L4 nerve root. We will treat symptomatically. Pain control with narcotic medications for severe pain. Will start patient on Flexeril. Consult spine surgery. Monitor vital signs. High risk for complications due to intravenous narcotic medication use. PT/OT based on spine surgery recommendations - Subjective Interval history: Patient is lying in bed at this time. He is in no acute distress. He has been heavily medicated overnight for uncontrolled pain which has finally been settled down. He states as long as he does not move these okay. He is anxiously awaiting his urological procedure. He denies chest pain, shortness of breath, fever, chills, nausea, vomiting, headache or dizziness. - Constitutional Vitals: Temp Pulse Resp BP Pulse Ox 98.4 F 53 14 137/71 95 10/14/17 15:56 10/14/17 15:56 10/14/17 15:56 10/14/17 15:56 10/14/17 15:56 General appearance: Present: cooperative, A&O X 3, severe distress, answers questions appropriately - Head Head exam: Present: atraumatic, normocephalic - Eye Eye exam: Present: conjuntiva pink, sclera anicteric - Neck Neck exam general surgery: Present: supple, trachea midline. Absent: lymphadenopathy - Respiratory Respiratory exam: Present: decreased breath sounds, CTAB. Absent: accessory muscle use, rales, respiratory distress, rhonchi, wheezes - Cardiovascular Cardiovascular exam: Present: RRR, +S1, +S2. Absent: diastolic murmur, gallop, rubs, systolic murmur - GI/Abdominal GI/Abdominal exam: Present: normal bowel sounds, soft, no peritoneal signs. Absent: distended, guarding, tenderness - Extremities Exam Extremities exam: Present: warm, radial pulses palpable and symmetrical. Absent : calf tenderness, cyanotic, pedal edema - Neurological Exam Neurological exam: Present: oriented X3, no focal deficits. Absent: pronater drift, facial droop, speech deficit - Skin Skin exam: Present: dry, intact, warm Internal Medicine: Result - Labs CBC & Chem 7: 10/14/17 04:18 10/14/17 04:18 Labs: Short CBC 10/14/17 Range/Units 04:18 WBC 6.4 (4.3-11.1) K/mcL Hgb 12.1 L (12.9-16.9) g/dL Hct 35.2 L (37.5-50.1) % Plt Count 182 (140-400) K/mcL Neutrophils # 3.4 (1.6-8.9) K/mcL BMP 10/14/17 04:18 Sodium 138 Potassium 3.8 Chloride 107 Carbon Dioxide 27 BUN 19 Creatinine 0.82 Glucose 100 Calcium 8.3 L Consult Discharge Plan - Plan Referrals: Simba Ellington DO [Primary Care Provider] -
[2017-10-14] MEDS ORDERED: Dexamethasone 4 MG/ML VIAL ONE (18:18)
[2017-10-14] MEDS ORDERED: Ondansetron 4 MG/2 ML VIAL ONE (18:18)
[2017-10-14] MEDS ORDERED: Ketorolac 30 MG/ML VIAL ONE (18:32)
[2017-10-14] MEDS ORDERED: *HR* Magnesium Sulfate 1 GM/2 ML VIAL ONE (18:41)
--- NOTE | 2017-10-14 19:20 | Anesthesia Evaluation Post Op ---
Date of Encounter: 10/14/17 Time of Encounter: 19:19 - Vital Signs Vital Signs: Vital Signs/O2 Sat/Glucose, Most Current Temp Pulse Resp BP Pulse Ox 10/14/17 19:15 52 16 150/82 97 10/14/17 19:05 50 16 149/80 100 10/14/17 18:55 97.7 F 60 16 136/87 100 10/14/17 15:56 98.4 F 53 14 137/71 95 - Lungs Lungs: Clear Ascult./Percussion - Airway Airway: Non-obstructed - Cardiovascular Baseline Rhythm - Mental Status Mental Status: Asleep with brisk response to light stimulation - Pain Pain Scale: 0 Pain Scale used: Numeric (1 - 10) - Nausea Vomiting Nausea Vomiting: Not Present - Hydration Hydration: Ice chips - Discharge PostOp Status: Transfer Patient to floor Anes Supervising Prov Stmt: Pt VSS and pt has met criteria for discharge to floor. -MD Valeri
[2017-10-14] MEDS ORDERED: Acetaminophen 325 MG TABLET PO PRN (19:36)
[2017-10-14] MEDS ORDERED: Ketorolac 30 MG/ML VIAL IVP PRN (19:36)
[2017-10-14] MEDS ORDERED: *HR* FentaNYL (PF) 100 MCG/2 ML VIAL IVP PRN (19:36)
[2017-10-14] MEDS ORDERED: *HR* Morphine 2 MG/ML SYRINGE IVP PRN (19:36)
[2017-10-14] MEDS ORDERED: Naloxone 0.4 MG/ML INJ IVP PRN (19:36)
[2017-10-14] MEDS ORDERED: D5% in 0.45% NACL 1,000 ML IVC SCH (19:36)
[2017-10-15] MEDS ORDERED: *HR* Heparin 5,000 UNIT/ML VIAL SQ SCH (06:00)
[2017-10-15] MEDS ORDERED: Multivit/Ca/Min/Fe/FA 1 TAB TABLET PO SCH (09:00)
--- NOTE | 2017-10-15 10:25 | Urology Progress Note ---
Date of Encounter: 10/15/17 Time of Encounter: 10:23 - Assessment and Plan (1) Ureterolithiasis Current Visit: Yes Status: Acute Assessment and plan: 76-year-old man with a history of left ureteral stone. I didn't see any stone evident within the left kidney. A stent has been placed. He can remove this on October 19, 2017. My office will arrange for follow-up with him in 2-4 weeks. I will sign off. Please call with any questions. Progress Note Narrative: Postop day #1 status post left ureteroscopy and stent placement. He is doing well. His urine is clearing. He reports minimal discomfort with the stent. He is still having left leg pain. Objective Initial Vital Signs Temp Pulse Resp BP Pulse Ox 98.6 F 78 20 152/85 98 10/13/17 08:41 10/13/17 08:41 10/13/17 08:41 10/13/17 08:41 10/13/17 08:41 - General physical appearance Present: well developed, well nourished, no distress - Respiratory Present: normal respiratory effort - Abdomen Present: soft - Labs 10/14/17 04:18 10/14/17 04:18 - VTE Documentation of Mechanical Device: Intermittent pneumatic compression device Consult Discharge Plan - Plan Referrals: Simba Ellington DO [Primary Care Provider] -
[2017-10-15 11:45] VITALS: BP 176/85
--- NOTE | 2017-10-15 11:50 | Event Note ---
Date of Encounter: 10/15/17 Time of Encounter: 11:[address] Alejandro who reviewed MRI. His plan is for outpatient referal to the spine center for lumbar epidural steroid injection. Follow up as soon as discharged.
--- NOTE | 2017-10-15 14:33 | Discharge Summary ---
Date of Encounter: 10/15/17 Time of Encounter: 14:29 - Discharge Diagnosis (1) Ureterolithiasis Priority: Primary Status: Acute Comments: 76-year-old man with a history of left ureteral stone. Urology consulted. Patient has 4 mm obstructing calculus in the left proximal ureter. Urology was consulted. No significant hydronephrosis. Left ureteroscopy, laser lithotripsy, basket stone extraction, and left ureteral stent placement completed. On postop day #1 status post left ureteroscopy and stent placement he is doing well. His urine is clearing. He reports minimal discomfort with the stent. No stone evident within the left kidney. A stent has been placed. Per urology He can remove this on October 19, 2017. Urology office will arrange for follow-up with him in 2-4 weeks. (2) Essential hypertension Priority: Secondary Status: Chronic Comments: Pressure was elevated when his pain level was elevated but since that has been controlled he is stable on his previous home medication regime (3) Sciatica Priority: Primary Status: Acute Comments: Due to L4 nerve root impingement. Management as per spine surgery recommendations as outpatient Qualifiers: Laterality: left Qualified Code(s): M54.32 - Sciatica, left side (4) Lumbar nerve root impingement Priority: Primary Status: Acute Comments: Patient with severe left sided sciatica with subarticular disc protrusion at L3- L4 and impingement of left L4 nerve root. Has been treated symptomatically. Orthopedic service spoke with Dr. Alejandro who reviewed MRI. His plan is for outpatient referal to the spine center for lumbar epidural steroid injection. Follow up as soon as discharged. Continue patient on Flexeril. Patient has been taking [place] at home, will continue Patient has were informed to let the orthopedic service know tomorrow that he was home so the arrangements can be made for the follow-up - Discharge Medications Prescriptions: Cyclobenzaprine [Flexeril] 10 mg PO TID PRN #21 tablet PRN Reason: Spasms HYDROcodone/Acet 7.5/325 mg [[place] 7.5-325 mg] 1 tab PO Q8H #21 tablet Home Medications: Ramipril [Altace] 2.5 mg PO DAILY 10/01/15 [History] Simvastatin [Zocor] 20 mg PO HS 10/01/15 [History] Tamsulosin [Flomax] 0.4 mg PO DAILY 10/01/15 [History] Multivitamin [One Daily Multivitamin] 1 tab PO DAILY 07/10/17 [History] Cyclobenzaprine [Flexeril] 10 mg PO TID PRN #21 tablet 10/15/17 [Rx] HYDROcodone/Acet 7.5/325 mg [[place] 7.5-325 mg] 1 tab PO Q8H #21 tablet 10/15/17 [Rx] Polyethylene Glycol 3350 [MiraLAX] 17 gm PO DAILY PRN powd.pack 10/15/17 [Rx] Allergies/Adverse Reactions: 3 Allergy/AdvReac Type Severity Reaction Status Date / Time meperidine Allergy Unresponsiv Verified 10/11/17 08:18 e Date of admission: 10/15/17 10:48 Primary care physician: Simba Ellington Discharging clinician: Ebony Pittman Anticipated date of discharge: 10/15/17 - Patient Status Disposition: Home, Self-Care Condition: Fair Functional capacity at discharge: independent ambulation Overall status at discharge: patient is progressing back to baseline - Discharge Instructions Follow Up With: Simba Ellington DO [Primary Care Provider] - - Diet and Activity Activity: resume usual activities as tolerated Diet: advance to your usual diet Interval History: Patient much more comfortable today, still having some left leg pain but denies any urinary symptoms. He is voiding without difficulty. No fevers, chills, chest pain, shortness of breath, changes in bowel or bladder. He is agreeable to go home so he can follow up with the Dr Jean-Baptiste in the office for his injection which is being scheduled Hospital course: Please see assessment and plan - Time Spent with Patient Total time spent providing and/or coordinating discharge services: Less than 30 minutes - Constitutional Vitals: Temp Pulse Resp BP Pulse Ox 97.9 F 65 17 176/85 93 10/15/17 11:43 10/15/17 11:43 10/15/17 11:43 10/15/17 11:43 10/15/17 11:43 General appearance: Present: cooperative, A&O X 3, pleasant, no acute distress, severe distress, answers questions appropriately - Head Head exam: Present: atraumatic, normocephalic - Eye Eye exam: Present: conjuntiva pink, sclera anicteric - Neck Neck exam general surgery: Present: supple, trachea midline. Absent: lymphadenopathy - Respiratory Respiratory exam: Present: CTAB. Absent: accessory muscle use, rales, rhonchi, wheezes - Cardiovascular Cardiovascular exam: Present: RRR, +S1, +S2. Absent: diastolic murmur, gallop, rubs, systolic murmur - GI/Abdominal GI/Abdominal exam: Present: normal bowel sounds, soft, no peritoneal signs. Absent: distended, tenderness - Extremities Exam Extremities exam: Present: warm, radial pulses palpable and symmetrical. Absent : calf tenderness, cyanotic, pedal edema Additional comments: Intermittent left leg pain with movement, no numbness - Neurological Exam Neurological exam: Present: alert, CN II-XII intact, oriented X3, no focal deficits. Absent: pronater drift, facial droop, speech deficit - Skin Skin exam: Present: dry, intact, warm - VTE Documentation of Mechanical Device: Intermittent pneumatic compression device
== END 2017-10-15 15:47 | disposition home or self-care (01) | DRG 694 ==
LOC: EMEROO 08:40 → 3BNU 08:40
PROVIDERS: ADMIT Internal Medicine; ATTEND Registered Nurse

== ENCOUNTER 2019-04-17 10:44 | Inpatient (IN) ==
--- NOTE | 2019-04-17 11:00 | History & Physical Report ---
Date of Encounter: 04/17/19 Time of Encounter: 10:59 24 Hour HP Update - Instructions Instructions: If the History and Physical is less than 30 days old and was completed prior to A.M. admission and or procedure and has NOT been updated on calendar day of procedure please complete this update prior to performing procedure. - Update Patient reports changes in Medical Condition: No Changes in examination, assessment, or condition: No Changes in Medication: No Preop tests/diagnostics Reviewed: Yes Surgery Remains Indicated: Yes Consent for Planned Operative Procedure(s) Verified: Yes - Pre-Operative Checklist Preoperative Checklist Indicated: No Prophylactic Antibiotic Ordered: Yes Is VTE Prophylaxis Indicated?: Yes
--- NOTE | 2019-04-17 11:01 | Discharge Summary ---
<Tyree Patricio - Last Filed: 04/17/19 12:35> Date of Encounter: 04/17/19 - Discharge Diagnosis (1) Rotator cuff tear arthropathy of right shoulder Priority: Primary Status: Chronic (2) Status post reverse total replacement of right shoulder Priority: Primary Status: Acute (3) Essential hypertension Priority: Secondary Status: Chronic (4) Hyperlipidemia Priority: Secondary Status: Chronic Qualifiers: Hyperlipidemia type: unspecified Qualified Code(s): E78.5 - Hyperlipidemia, unspecified (5) History of deep vein thrombosis Priority: Secondary Status: Chronic - Hospital Course Hospital course: Mr. Chung is a 78 year old male - Time Spent with Patient Total time spent providing and/or coordinating discharge services: - Discharge Medications Prescriptions: New OxyCODONE Immed Rel [Roxicodone 5 MG] 5 mg PO Q6HR PRN 5 Days #20 tablet PRN Reason: Pain Continued Tamsulosin [Flomax] 0.4 mg PO QAM Simvastatin [Zocor] 20 mg PO HS Ramipril [Altace] 2.5 mg PO QAM Multivitamin [One Daily Multivitamin] 1 tab PO QAM Diclofenac Sodium 2 gm TP BID PRN PRN Reason: Pain Fluticasone Propionate Nasal [Flonase] 1 spray NS DAILY PRN PRN Reason: Allergy Symptoms Omeprazole [PriLOSEC] 40 mg PO QAM Home Medications: Ramipril [Altace] 2.5 mg PO QAM 10/01/15 [History] Simvastatin [Zocor] 20 mg PO HS 10/01/15 [History] Tamsulosin [Flomax] 0.4 mg PO QAM 10/01/15 [History] Multivitamin [One Daily Multivitamin] 1 tab PO QAM 07/10/17 [History] Diclofenac Sodium 2 gm TP BID PRN 04/17/19 [History] Fluticasone Propionate Nasal [Flonase] 1 spray NS DAILY PRN 04/17/19 [History] Omeprazole [PriLOSEC] 40 mg PO QAM 04/17/19 [History] OxyCODONE Immed Rel [Roxicodone 5 MG] 5 mg PO Q6HR PRN 5 Days #20 tablet 04/17/19 [Rx] Allergies/Adverse Reactions: Allergy/AdvReac Type Severity Reaction Status Date / Time meperidine Allergy Unresponsiv Verified 04/17/19 11:06 e Primary care physician: Simba Ellington - Patient Status Disposition: Home, Self-Care Condition: Good - Discharge Instructions Instructions: Rotator Cuff Tear Repair (DC), Deep Venous Thrombosis (DC) Follow Up With: Simba Ellington DO [Primary Care Provider] - <Trish Acevedo - Last Filed: 04/18/19 10:44> Orders not resulted at time of discharge: Pending orders 04/17/19 14:13 Surgical Pathology [PTH] Routine Date of Encounter: 04/18/19 Time of Encounter: 10:00 - Discharge Diagnosis (1) Status post reverse total replacement of right shoulder Priority: Primary Status: Acute (2) Rotator cuff tear arthropathy of right shoulder Priority: Primary Status: Chronic (3) History of deep vein thrombosis Priority: Secondary Status: Chronic (4) Hyperlipidemia Priority: Secondary Status: Chronic Qualifiers: Hyperlipidemia type: unspecified Qualified Code(s): E78.5 - Hyperlipidemia, unspecified (5) DVT prophylaxis Priority: Secondary Status: Acute (6) Lumbar nerve root impingement Priority: Secondary Status: Acute (7) Sciatica Priority: Secondary Status: Acute Qualifiers: Laterality: left Qualified Code(s): M54.32 - Sciatica, left side (8) Ureterolithiasis Priority: Secondary Status: Acute (9) Essential hypertension Priority: Secondary Status: Chronic - Hospital Course Hospital course: Mr. Chung is a 78 year old male status post right TSR reverse 04/17/19 with medical history of HTN and h/o DVT. He participated in therapy and had an uneventful hospital course. He is stable for discharge and will follow up in [facility] office next week. PCR - POD#1 s/p right TSR reverse 04/17 Patient seen at bedside, without complaints. A&O x 3 Afebrile, vital signs stable. Dressings had minimal bleeding visible, full motion of hand and wrist, sensation intact distally. Labs reviewed. H/H - 13.3/38.9 stable, asymptomatic Pain control: adequate Participating in PT. All questions and concerns addressed. Educated on use of incentive spirometer. Encouraged ambulation and proper hydration. Patient educated on post-operative restrictions and post-operative care. Assessment and plan: Continue with postoperative care Discharge plan: Home with outpatient therapy, discharge today. - Time Spent with Patient Total time spent providing and/or coordinating discharge services: Date of admission: 04/17/19 15:45 Primary care physician: Simba Ellington Consults: 04/17/19 15:53 Consult to Physical Therapy [CONS] Routine Comment: post shoulder surgery Reason for Consult: post shoulder surgery Does patient have active BEDREST order?: No Is patient medically & hemodynamically stable?: Yes Consult to Pl[employer] [CONS] Routine Reason for SW Consult: shoulder surgery RT Post Op Consult [CONS] Routine Discharging clinician: Tyree Patricio Anticipated date of discharge: 04/18/19 Labs on day of discharge: Labs from last 24 hours 04/18/19 04/18/19 04/17/19 04:08 04:08 09:54 Hgb 13.3 12.7 L Hct 38.9 37.3 L Sodium 137 Potassium 4.3 Chloride 105 Carbon Dioxide 22 L BUN 21 Creatinine 0.88 Est GFR ( Amer) > 60 Est GFR (Non-Af Amer) > 60 BUN/Creatinine Ratio 24 Glucose 131 H Calculated Osmolality 289 Calcium 9.0 Short CBC 04/18/19 04/17/19 Range/Units 04:08 09:54 Hgb 13.3 12.7 L (12.9-16.9) g/dL Hct 38.9 37.3 L (37.5-50.1) % BMP 04/18/19 Range/Units 04:08 Sodium 137 (136-145) mEq/L Potassium 4.3 (3.5-5.1) mEq/L Chloride 105 (98-107) mEq/L Carbon Dioxide 22 L (23-29) mEq/L BUN 21 (8-23) mg/dL Creatinine 0.88 (0.70-1.30) mg/dL Glucose 131 H (70-105) mg/dL Calcium 9.0 (8.6-10.3) mg/dL - Impressions ITS Impressions Shoulder X-Ray 04/17/19 09:54 IMPRESSION: Status post successful reverse right shoulder replacement surgery. D/ / 04/17/2019 15:34:42 Eulalio Kaba MD / deborah Interpreting Provider: Eulalio Kaba MD - Patient Status Functional capacity at discharge: independent ambulation Overall status at discharge: patient is back to baseline - Diet and Activity Activity: as per physical therapy Diet: advance to your usual diet
[2019-04-17] MEDS ORDERED: CeFAZolin Syr 2,000MG/20 ML 2,000 MG/20 ML SYRINGE IVPB ONE (11:15)
[2019-04-17] MEDS ORDERED: Ringers Solution, Lactated 1,000 ML IVC SCH ×2 (11:15→15:53)
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
[2019-04-17] MEDS ORDERED: *HR* OxyCODONE Immed Rel 5 MG TABLET PO PRN ×2 (11:35→15:53)
[2019-04-17] MEDS ORDERED: Acetaminophen IV 1,000 MG/100 ML INFUS..BTL IVPB ONE (11:35)
[2019-04-17] MEDS ORDERED: ROPIVACAINE/PF/NS 0.25% 1 EACH SYRINGE INTRAART ONE (12:21)
[2019-04-17] MEDS ORDERED: Ropivacaine/PF 0.5% 30 ML VIAL ONE (12:21)
[2019-04-17] MEDS ORDERED: *HR* FentaNYL (PF) 100 MCG/2 ML VIAL ONE (12:44)
[2019-04-17] MEDS ORDERED: Ethanol\\Acetic Acid\\Na Ace\\Ben 1,000 ML IRRIG.SOLN IR ONE (12:44)
[2019-04-17] MEDS ORDERED: *HR* Propofol 200 MG/20 ML VIAL IVP ONE (12:44)
[2019-04-17] MEDS ORDERED: *HR* Midazolam HCl 2 MG/2 ML VIAL ONE (12:44)
[2019-04-17] MEDS ORDERED: *HR* Rocuronium Bromide 50 MG/5 ML VIAL ONE (12:51)
[2019-04-17] MEDS ORDERED: Dexamethasone 4 MG/ML VIAL ONE (12:51)
[2019-04-17] MEDS ORDERED: Lidocaine -MPF 2% 2 ML VIAL ONE (12:51)
[2019-04-17] MEDS ORDERED: *HR* Succinylcholine 200 MG/10 ML VIAL IVP ONE (12:51)
[2019-04-17] MEDS ORDERED: Lidocaine HCL 4 ML Topical Solution (Laryng-O-Jet Kit Sterile Pak) TP ONE (12:51)
[2019-04-17] MEDS ORDERED: Ondansetron 4 MG/2 ML VIAL ONE (12:51)
[2019-04-17] MEDS ORDERED: Tranexamic Acid 1,000 MG/10 ML VIAL ONE (12:55)
--- NOTE | 2019-04-17 13:20 | Anesthesia Procedures ---
Date of Encounter: 04/17/19 Time of Encounter: 13:05 Procedures: Anesthesia - Nerve Block Procedure Date: 04/17/19 Time: 13:05 Allergies/Adv Reactions: demerol Pre-op Diagnosis: Right Shoulder Arthritis Surgical Procedure: Right Total Shoulder Arthroplasty Checklist: Correct Patient Identifier, Correct procedure, History checked Correct side: Right Blood Thinner: No Monitor Applied: EKG, BP, Pulse Oximetry Supplemental Oxygen via Nasal Cannula (L/min): 2 Sedation: Versed (mg): 2 Sedation: Fentanyl (mcg): 100 Indication: Post Op Analgesia Pre-op Neuro Deficits: No Block Type: Supraclavicular Sterile Technique: Yes Ultrasound used: Yes Anatomy identified: Yes Visual spread of Local: Yes Neuro Stimulation: No Blood on Needle Aspiration: No Smooth Injection of Local: Yes Pain with Injection of Local: No Prep: Chlorhexadine Needle: 22 x 50 mm Stimuplex Local: Ropivacaine (with decadron 8mg) Volume (cc): 30 Number of Attempts: 1 Complications: None/effective block Vitals: Last Vital Signs Temp 98.2 F 04/17/19 13:04 Pulse 57 04/17/19 13:11 Resp 18 04/17/19 13:11 BP 166/73 04/17/19 13:11 Pulse Ox 95 04/17/19 13:11
--- NOTE | 2019-04-17 14:12 | Orthopedic Operative Note ---
Date of procedure: 04/17/19 Pre-op diagnosis: Right shoulder cuff tear arthropathy Post-op diagnosis: same Procedure: Procedure: Total Shoulder Replacment Reverse, right Estimated blood loss: 50 cc Hardware: Metal and polyethylene replacement: Arthrex 28, +2 , 30 mm screw glenoid baseplate, 4 locking 5.5 screw, 42+4 glenosphere, 10 [place] humeral stem, poly insert 6 Exam Under anesthesia: Full motion no instability Procedural Notes: Irreparable rotator cuff tear Operative procedure: The patient was brought to the operating room and placed on the operating room table. After general anesthesia was administered the operative shoulder was examined. Findings were noted. The patient was placed in the modified beachchair position. All pressure points were padded appropriately. And the head was stabilized in the neutral position. The operative extremity was prepped and draped in the sterile surgical fashion. The patient received IV antibiotics prior to skin incision. A standard deltopectoral approach was made to the operative shoulder. Incision was made to the skin and subcutaneous tissue,hemo stasis was obtained with Bovie cautery. Using careful blunt dissection the cephalic vein was identified and mobilized medially. The deltopectoral interval was developed and the clavipectoral fascia was incised. The subscap was released off the lesser tuberosity and tagged with #2 FiberWire suture subscap was irreparable. The humerus was dislocated patient noted to have irreparable tear supraspinatus tendon, and the humeral cut was made along the anatomic neck. Anterior and posterior Bankart retractors were placed to expose the glenoid. The glenoid guide was seated and the centering hole was made. It was reamed with the appropriate reamer. The 28, +2, 30 mm screw, baseplate was seated and secured with 4 locking 5.5 screw. The baseplate was irrigated and dried and the 42+4 Glenosphere was seated and secured with the Clark taper. The Clark taper was tested and found to be secure, glenosphere fixation was secondarily secured with the central screw. The humerus was redislocated and prepared with the diaphyseal reamers, followed by a broaching process up to the appropriate size 10 [place] in the patient's anatomic version. The metaphyseal reamer was then utilized. Trial reduction found the shoulder to be relocatable. Trial components were removed and 10 [place] stem was impacted in place in the patient's anatomic version. Trial reduction found the shoulder to be relocatable and stable with the appropriate 6. Trial component was removed and the real implant was seated and secured the shoulder was reduced. The shoulder had excellent motion and excellent stability and no evidence of dislocation. The deep tissue was irrigated with pulse irrigation. The PA close the shoulder. The deltopectoral interval was closed with a running #1 PDS suture, subcutaneous tissue was irrigated and closed with 0 PDS suture, the skin was closed with Dermabond. The patient was placed in a sterile dressing, abduction brace and extubated. The patient was then transferred to the recovery room in stable condition. Anesthesia: GETA Surgeon: Tyree Patricio Was there an advertising sales assistant present: Yes Interactive Graphic Designer: Basil Garza Estimated blood loss (cc): 50 Condition: stable Disposition: PACU
[2019-04-17 15:20] LABS: Hematocrit 37.3 % (37.5-50.1); Hemoglobin 12.7 g/dL (12.9-16.9)
[2019-04-17] MEDS ORDERED: Ondansetron 4 MG/2 ML VIAL IVP PRN (15:53)
[2019-04-17] MEDS ORDERED: MOM Conc 10 ML UD.LIQ PO PRN (15:53)
[2019-04-17] MEDS ORDERED: Temazepam 15 MG CAPSULE PO PRN (15:53)
[2019-04-17] MEDS ORDERED: Fluticasone Propionate Nasal 50 MCG/SPRAY BOTTLE NS PRN (15:53)
[2019-04-17] MEDS ORDERED: traMADol 50 MG TABLET PO PRN (15:53)
[2019-04-17] MEDS ORDERED: *HR* OxyCODONE/APAP 5/325 TABLET PO PRN (15:53)
[2019-04-17] MEDS ORDERED: Sennosides 8.6 MG TABLET PO PRN (15:53)
[2019-04-17] MEDS ORDERED: *HR* Enoxaparin 30 MG/0.3 ML SYRINGE SQ SCH (18:00)
[2019-04-17] MEDS: *HR* Enoxaparin 30 MG/0.3 ML SYRINGE SQ SCH (18:11)
[2019-04-18 04:47] LABS: Hematocrit 38.9 % (37.5-50.1); Hemoglobin 13.3 g/dL (12.9-16.9)
[2019-04-18 05:06] LABS: BUN/Creatinine Ratio 24 (6-26); Blood Urea Nitrogen 21 mg/dL (8-23); Carbon Dioxide 22 mEq/L (23-29); Chloride 105 mEq/L (98-107); Glucose 131 mg/dL (70-105); Osmolality,Calculated 289 (280-300); Potassium 4.3 mEq/L (3.5-5.1); Sodium 137 mEq/L (136-145); eGFR For African Americans > 60 (> 60); eGFR For Non-African Americans > 60 (> 60)
[2019-04-18] MEDS: *HR* Enoxaparin 30 MG/0.3 ML SYRINGE SQ SCH (05:41)
--- NOTE | 2019-04-18 08:10 | Orthopedics Progress Note ---
Date of Encounter: 04/18/19 Time of Encounter: 08:09 - Assessment and Plan (1) Rotator cuff tear arthropathy of right shoulder Current Visit: Yes Status: Chronic (2) Status post reverse total replacement of right shoulder Current Visit: Yes Status: Acute (3) Essential hypertension Current Visit: No Status: Chronic (4) Hyperlipidemia Current Visit: Yes Status: Chronic Qualifiers: Hyperlipidemia type: unspecified Qualified Code(s): E78.5 - Hyperlipidemia, unspecified (5) History of deep vein thrombosis Current Visit: Yes Status: Chronic Subjective Interval history: Patient was seen this morning doing well without complaints. Afebrile vital signs stable. Operative extremity: Neurovascularly intact Dressing clean dry and intact Calves nontender Assessment and plan: Continue with postoperative care Plan for discharge today Objective Vital signs: Vital Signs Temp Pulse Resp BP Pulse Ox 04/18/19 07:33 97.9 F 54 16 129/67 95 04/18/19 02:51 98.6 F 61 16 146/64 97 04/17/19 22:43 98.8 F 62 17 150/60 96 04/17/19 19:05 98.6 F 60 16 153/62 97 04/17/19 18:36 56 135/81 96 04/17/19 17:36 57 147/80 96 04/17/19 16:06 59 165/94 96 04/17/19 15:49 97.4 F L 59 16 136/83 94 04/17/19 15:26 98.1 F 60 16 165/82 96 04/17/19 15:16 58 16 160/79 96 04/17/19 15:06 98.0 F 62 16 157/81 95 04/17/19 14:56 62 16 153/83 94 04/17/19 14:46 62 16 157/89 97 04/17/19 14:36 97.9 F 65 16 110/58 97 04/17/19 13:11 57 18 166/73 95 04/17/19 13:04 98.2 F 59 18 147/76 97 04/17/19 13:00 64 18 198/90 94 04/17/19 11:17 98.2 F 59 18 147/76 97 04/17/19 11:05 98.2 F 59 18 147/76 97 Intake and Output 04/17/19 04/18/19 04/18/19 23:59 07:59 15:59 Intake Total 300 / 320 Balance 300 / 270 Intake: IV Fluids 100 / 120 Ancef 2,000 MG In 0.9 % Sodium 100 / 100 Chloride 100 ML @ 200 mls/hr IVPB Q8H WON Rx#:[id number] Oral 200 / 200 Other: # Voids 1 1 Weight 89.1 kg Patient Weight 04/18/19 23:59 Weight 89.1 kg - Labs CBC & BMP: 04/18/19 04:08 04/18/19 04:08 Labs: Abnormal lab results Hgb 12.7 g/dL (12.9-16.9) L 04/17/19 09:54 Hct 37.3 % (37.5-50.1) L 04/17/19 09:54 Carbon Dioxide 22 mEq/L (23-29) L 04/18/19 04:08 Glucose 131 mg/dL (70-105) H 04/18/19 04:08 Consult Discharge Plan - Plan Referrals: Simba Ellington DO [Primary Care Provider] -
[2019-04-18] MEDS ORDERED: Multivit/Ca/Min/Fe/FA 1 TAB TABLET PO SCH (09:00)
[2019-04-18 10:56] VITALS: BP 160/76
== END 2019-04-18 12:19 | disposition home or self-care (01) | DRG 483 ==
LOC: SAMDAY 10:44 → 3NENU 15:45
PROVIDERS: ADMIT Orthopaedic Surgery; ATTEND Orthopaedic Surgery